=== PATIENT | male | born 1955 | race Caucasian/White ===

== ENCOUNTER 2024-12-04 11:36 | Outpatient (CLI) | payer MEDICARE, OTHER, SELFPAY ==
--- NOTE | 2024-12-04 11:53 | ECG_ITS ---
APPROVED REPORT Exam: Resting ECG HR:130 bpm ECG Measurements Heart Rate 130 AXES QRSd 108 QRS 88 QT 314 T 69 QTc 391 Conclusion ATRIAL FIBRILLATION WITH RAPID VENTRICULAR RESPONSE MINIMAL ST DEPRESSION [0.025+ mV ST DEPRESSION] ABNORMAL RHYTHM ECG UNCONFIRMED REPORT Electronically signed by : Ameya Liz MD 12/05/2024 08:31:12
[2024-12-04 12:21] LABS: Basophils % 0.6 % (0.1-2.0); Eosinophils # 0.2 K/mm3 (0.0-0.4); Eosinophils % 4.5 % (0.1-12.0); Hematocrit 38.5 % (42.0-52.0); Hemoglobin 12.8 g/dL (14.1-18.0); Lymphocytes # 0.5 K/mm3 (0.7-4.5); Lymphocytes % 10.6 % (10-50); Mean Corpuscular HGB Conc 33.2 g/dL (31.8-35.4); Mean Corpuscular Hemoglobin 32.1 pg (27.0-31.2); Mean Corpuscular Volume 96.5 fl (80-94); Mean Platelet Volume 11.1 fl (7.4-10.4); Monocytes # 0.7 K/mm3 (0.1-1.0); Monocytes % 13.5 % (1.7-9.3); Neutrophils # 3.6 K/mm3 (1.8-7.8); Neutrophils % 70.4 % (37.0-80.0); Platelet Count 192 K/mm3 (142-424); Red Blood Count 3.99 M/mm3 (4.60-6.20); Red Cell Distribution Width 12.7 % (11.5-17.5); White Blood Count 5.1 K/mm3 (4.8-10.8)
[2024-12-04 13:03] LABS: Alanine Aminotransferase 46 U/L (12-78); Alkaline Phosphatase 62 U/L (38-126); Aspartate Amino Transferase 35 U/L (17-59); Bilirubin,Total 0.8 mg/dl (0.2-1.3); Blood Urea Nitrogen 13 mg/dl (9-20); Calcium 9.3 mg/dl (8.4-10.2); Carbon Dioxide 29 mmol/L (22.0-30.0); Chloride 106 mmol/L (98-107); Estimated Glomerular Filt Rate 84 ml/min (>60); GFR (African American) 102 ML/MIN (>60); Glucose 97 mg/dl (74-100); Magnesium 2.1 mg/dl (1.6-2.3); Sodium 140 mmol/L (136-145)
[2024-12-04 13:21] LABS: Anion Gap 10.1 mEq/L (5-15); Potassium 5.1 mmoL/L (3.5-5.1)
[2024-12-04 13:33] LABS: Thyroid Stimulating Hormone 2.01 uIU/mL (0.465-4.68)
== END 2024-12-04 23:59 | disposition home or self-care (01) ==
LOC: LAB 11:41
PROVIDERS: PCP Family Medicine; Visit Provider Family Medicine
DX: R00.0 Tachycardia, unspecified (principal)
CPT/HCPCS: 36415; 80053; 83735; 84443; 85025; 93005

== ENCOUNTER 2024-12-09 09:03 | Outpatient (CLI) | payer MEDICARE, OTHER, SELFPAY ==
--- NOTE | 2024-12-09 | CA_ITS ---
APPROVED REPORT EXAM: Comprehensive 2D, Doppler, and color-flow Echocardiogram Assembly Loader: Megan Novoa, RCS, RVS Ht: 6 ft 0 in Wt: 215lbs BSA: 2.20 BP: 117/76 mmHg Indications: AFIB, EDEMA 2D Dimensions Left Atrium 3.97 cm M: 3.0 - 4.0 LA Volume 97.90 mL LA Volume Index [id number] mL/m2 (M/F) 16-34 M-Mode Dimensions RVDd 2.78 cm (0.9-2.6) LA Diam 3.83 cm (1.9-4.0) LVDd 5.51 cm (3.5-5.7) LVDs 4.01 cm (3.5-5.7) IVSd 1.17 cm (0.6-1.1) PWd 1.25 cm (0.6-1.1) EF (Teich) 48.40% EPSs 0.61 cm FS 24.60% EDV (Teich) 136.50 mL TAPSE 1.74 (<1.7) ESV (Teich) 70.40 mL LV Diastology E Decel Time 167 (160-240 msec) E/A Ratio 2.52 MED A' 7.30 cm/s LAT A' 6.00 cm/s Aortic Valve MICHELLE Index 1.09 cm2/m2 AoV Peak Scott. 123.0 (50-130 cm/s) AI PHT 461.00 ms AO Peak GR. 6.10 mmHg AO Mean GR. 3.10 (<5 mmHg) AO VTI 21.1 (18-25 cm) MICHELLE (VTI) 2.46 (2.5-4.5 cm2) Mitral Valve MV A Velocity 36.0 (40-130 cm/s) E/A Ratio 2.52 Pulmonary Valve KY End VMAX 161.0 cm/s Tricuspid Valve TR P. Velocity 213.00 cm/s RAP Estimate 10.00 mmHg RVSP 28.10 mmHg Left Ventricle The left ventricle is normal size. LVEDD 5.8 cm. LVESD 4.7 cm. The left ventricular systolic function is low normal. There is increased LV wall thickness. The septum is asynchronous. Diastolic function is indeterminate. LVEF is 50%. Right Ventricle The right ventricle is normal size. The right ventricular systolic function is normal. Atria Left atrium is moderately dilated. Right atrium is moderately dilated. There is no Doppler evidence of interatrial shunt. Aortic Valve The aortic valve is mildly thickened. The aortic valve is trileaflet. There is no aortic valvular stenosis. Moderate aortic regurgitation. Mitral Valve The mitral valve leaflets are mildly thickened. No evidence of mitral valve stenosis. Mild mitral regurgitation. Tricuspid Valve Tricuspid valve is grossly normal in structure and function. Mild tricuspid regurgitation. RVSP is 20-25 mmHg. Pulmonic Valve The pulmonary valve is normal in structure. Mild pulmonic regurgitation. Great Vessels The aortic root is mildly dilated, measuring 4.4 cm in diameter. IVC is normal in size and collapses >50% with inspiration. Pericardium There is no pericardial effusion. Other Information Study Quality: Fair Conclusion Low normal LV systolic function. LVEDD 5.8 cm. LVESD 4.7 cm. Asynchronous septum. Moderate biatrial dilation. Moderate AI. Mild MR, mild TR mild PI. The aortic root is mildly dilated, measuring 4.4 cm in diameter. Electronically signed by : Gabriella Lovett MD 12/16/2024 13:57:40
== END 2024-12-09 23:59 | disposition home or self-care (01) ==
LOC: RT 09:04
PROVIDERS: PCP Family Medicine; Visit Provider Family Medicine
DX: I51.7 Cardiomegaly (principal); I34.0 Nonrheumatic mitral (valve) insufficiency; I35.1 Nonrheumatic aortic (valve) insufficiency; I36.1 Nonrheumatic tricuspid (valve) insufficiency; I37.1 Nonrheumatic pulmonary valve insufficiency; R60.0 Localized edema; I48.91 Unspecified atrial fibrillation
CPT/HCPCS: 93306

== ENCOUNTER 2025-01-18 10:22 | Outpatient (CLI) | payer MEDICARE, OTHER, SELFPAY ==
[2025-01-18 11:31] LABS: Chloride 105 mmol/L (98-107)
[2025-01-18 11:32] LABS: Potassium 3.7 mmoL/L (3.5-5.1); Sodium 141 mmol/L (136-145)
[2025-01-18 11:35] LABS: Anion Gap 11.7 mEq/L (5-15); Blood Urea Nitrogen 23 mg/dl (9-20); Calcium 8.5 mg/dl (8.4-10.2); Carbon Dioxide 28 mmol/L (22.0-30.0); Estimated Glomerular Filt Rate 75 ml/min (>60); GFR (African American) 90 ML/MIN (>60); Glucose 88 mg/dl (74-100)
== END 2025-01-18 23:59 | disposition home or self-care (01) ==
LOC: LAB 10:25
PROVIDERS: PCP Family Medicine; Visit Provider Internal Medicine Cardiovascular Disease
DX: I48.11 Longstanding persistent atrial fibrillation (principal)
CPT/HCPCS: 36415; 80048